=== PATIENT | male | born 1990 | race African-American/Black ===

== ENCOUNTER 2018-10-25 18:35 | Emergency (ER) | payer SELFPAY ==
[2018-10-25] MEDS ORDERED: ONDANSETRON HCL INJ/PF 4 MG/2 ML SDV IV ONE (19:05)
--- NOTE | 2018-10-25 19:08 | ER Document Report ---
ED Medical Screen (RME) - General Chief Complaint: Nausea/Vomiting/Diarrhea Stated Complaint: VOMITING Primary Care Provider: JHON BROWN MD [Primary Care Provider] - Follow up as needed TRAVEL OUTSIDE OF THE [place] IN LAST 30 DAYS: No - HPI Notes: 10/25/18 19:06 Patient is a 28-year-old male who presents complaining of mid/generalized abdominal pain is described as sharp with associated nausea, vomiting, and watery diarrhea that began yesterday evening. Patient states that he does have associated body aching and did have muscle cramping earlier. Denies [place], fever, neck pain, URI, CP, SOB, dysuria, back pain, or rash. I have treated and performed a rapid initial assessment of this patient. A comprehensive ED assessment and evaluation of the patient, analysis of test results and completion of medical decision making process will be conducted by additional ED providers. PHYSICAL EXAMINATION: GENERAL: Well-appearing, well-nourished and in no acute distress. A&Ox4. Answers questions appropriately. LUNGS: Breath sounds clear to auscultation bilaterally and equal. No wheezes rales or rhonchi. HEART: Regular rate and rhythm without murmurs, rubs, gallops. ABDOMEN: Soft, nondistended abdomen. No guarding, no rebound. Normal bowel sounds present. No CVA tenderness bilaterally. + mid abd tenderness (cannot elicit thorough abd exam w/o bed, however). - Related Data Allergies/Adverse Reactions: No Known Allergies Allergy (Unverified 10/25/18 18:44) Physical Exam - Vital signs Vitals: Temp Pulse Resp BP Pulse Ox 98.1 F 93 18 148/95 H 98 10/25/18 18:54 10/25/18 18:54 10/25/18 18:54 10/25/18 18:54 10/25/18 18:54 Course - Vital Signs Vital signs: Temp Pulse Resp BP Pulse Ox 98.1 F 93 18 148/95 H 98 10/25/18 18:54 10/25/18 18:54 10/25/18 18:54 10/25/18 18:54 10/25/18 18:54 Doctor's Discharge - Discharge Referrals: JOHN BROWN MD [Primary Care Provider] - Follow up as needed
[2018-10-25] MEDS: NORMAL SALINE 1000 ML 1,000 ML IV PRN ×2 (19:38→22:17)
[2018-10-25 19:53] LABS: ABSOLUTE BASOPHILS # (AUTO) 0.1 10^3/uL (0.0-0.2); ABSOLUTE LYMPHOCYTES (AUTO) 0.8 10^3/uL (0.5-4.7); ABSOLUTE MONOCYTES (AUTO) 0.8 10^3/uL (0.1-1.4); ABSOLUTE NEUT (AUTO) 11.3 10^3/uL (1.7-8.2); BASOPHILS % (AUTO) 0.5 % (0-2); HEMOGLOBIN 16.1 g/dL (13.5-17.0); LYMPHOCYTES % (AUTO) 5.9 % (13-45); MEAN CORPUSCULAR HEMOGLOBIN 31.4 pg (27.0-33.4); MEAN CORPUSCULAR HGB CONC 34.2 g/dL (32.0-36.0); MEAN CORPUSCULAR VOLUME 92 fl (80-97); MONOCYTES % (AUTO) 6.4 % (3-13); PLATELET COUNT 422 10^3/uL (150-450); RED BLOOD COUNT 5.11 10^6/uL (4.35-5.55); RED CELL DISTRIBUTION WIDTH 12.6 % (11.5-14.0); SEGMENTED NEUTROPHILS % (AUTO) 87.2 % (42-78); TOTAL CELLS COUNTED % (AUTO) 100 %
[2018-10-25 20:12] LABS: ALANINE AMINOTRANSFERASE 39 U/L (21-72); ALBUMIN 5.5 g/dL (3.5-5.0); ALKALINE PHOSPHATASE 91 U/L (38-126); ANION GAP 13 (5-19); ASPARTATE AMINO TRANSFERASE 39 U/L (17-59); BILIRUBIN,DIRECT 0.2 mg/dL (0.0-0.4); BILIRUBIN,TOTAL 1.3 mg/dL (0.2-1.3); BLOOD UREA NITROGEN 12 mg/dL (7-20); CALCIUM 10.5 mg/dL (8.4-10.2); CARBON DIOXIDE 32 mmol/L (22-30); CHLORIDE 98 mmol/L (98-107); CREATINE KINASE 190 U/L (55-170); GLUCOSE 117 mg/dL (75-110); LIPASE 66.9 U/L (23-300); POTASSIUM 3.9 mmol/L (3.6-5.0); SODIUM 142.5 mmol/L (137-145); TOTAL PROTEIN 9.6 g/dL (6.3-8.2)
[2018-10-25 21:00] LABS: APPEARANCE,URINE SLIGHTLY-CLOUDY; BILIRUBIN,URINE NEGATIVE (NEGATIVE); COLOR,URINE YELLOW; GLUCOSE, URINE NEGATIVE (NEGATIVE); KETONES,URINE NEGATIVE (NEGATIVE); LEUKOCYTE ESTERASE,URINE NEGATIVE (NEGATIVE); NITRITE,URINE NEGATIVE (NEGATIVE); PROTEIN,URINE 30 mg/dL (NEGATIVE); URINE SPECIFIC GRAVITY 1.032; UROBILINOGEN,URINE NEGATIVE mg/dL (<2.0)
[2018-10-25] MEDS ORDERED: METOCLOPRAMIDE HCL INJ/PF 10 MG/2 ML SDV IV ONE (21:18)
[2018-10-25] MEDS ORDERED: HYDROMORPHONE HCL INJ/PF 2 MG/ML AMPULE IV ONE (21:36)
--- NOTE | 2018-10-25 21:51 | RADIOLOGY REPORT (SQ) ---
EXAM DESCRIPTION: XR ABDOMEN 2 VIEWS SUPINE ERECT COMPLETED DATE/TME: 10/25/2018 21:19 CLINICAL HISTORY: 28 years, Male, n/v/d severe abd pain COMPARISON: None. NUMBER OF VIEWS: Three TECHNIQUE: Three frontal radiographs of the abdomen were obtained LIMITATIONS: None. FINDINGS: Gas and a mild amount of stool are noted throughout the large bowel. Scattered nondilated loops of small bowel are also visible. No subdiaphragmatic free air. No suspicious osseous anomalies. A tiny calcific density projects over the left upper quadrant measuring approximately 2 mm in size just lateral to the left L1 transverse process. Linear ossifications are noted about the medial aspects of both thighs, likely related to remote trauma. IMPRESSION: Nonobstructive bowel gas pattern. 2 mm calcific density projecting about the left upper quadrant just lateral to the left L1 transverse process could indicate enteric material or nephrolithiasis. copyright 2010 [employer]- All Rights Reserved
--- NOTE | 2018-10-25 23:34 | ER Document Report ---
ED General - General Chief Complaint: Nausea/Vomiting/Diarrhea Stated Complaint: VOMITING Time Seen by Provider: 10/25/18 22:24 Primary Care Provider: JOHN BROWN MD [EMERITUS] - Follow up in 3-5 days Notes: Patient is a 28-year-old male without chronic medical problems, no prior abdominal surgical history, presents complaining of 2 days of generalized abdominal pain with associated nausea, vomiting and diarrhea. Abdominal pain is described as a cramping, diffuse, generalized discomfort. Symptoms started gr adually, have been worsening since onset. Regards is being severe in intensity. Nothing seems to improve or worsen his symptoms. Denies history of similar symptoms in the past. No known sick contacts. Has not seen his primary care physician regarding today's concerns. Has not had fever. No melena, hematochezia or hematemesis. TRAVEL OUTSIDE OF THE [place] IN LAST 30 DAYS: No - Related Data Allergies/Adverse Reactions: No Known Allergies Allergy (Unverified 10/25/18 18:44) Past Medical History - General Information source: Patient - Social History Smoking Status: Never Smoker Chew tobacco use (# tins/day): No Frequency of alcohol use: None Drug Abuse: Marijuana Lives with: Spouse/Significant other Family History: Reviewed & Not Pertinent Patient has suicidal ideation: No Patient has homicidal ideation: No - Past Medical History Cardiac Medical History: Reports: Hx Hypertension Renal/ Medical History: Denies: Hx Peritoneal Dialysis Review of Systems - Review of Systems Notes: Constitutional: Negative for fever. HENT: Negative for sore throat. Eyes: Negative for visual changes. Cardiovascular: Negative for chest pain. Respiratory: Negative for shortness of breath. Gastrointestinal: Positive for abdominal pain, vomiting and diarrhea Genitourinary: Negative for dysuria. Musculoskeletal: Negative for back pain. Skin: Negative for rash. Neurological: Negative for headaches, weakness or numbness. 10 point ROS negative except as marked above and in HPI. Physical Exam - Vital signs Vitals: Temp Pulse Resp BP Pulse Ox 98.1 F 93 18 148/95 H 98 10/25/18 18:54 10/25/18 18:54 10/25/18 18:54 10/25/18 18:54 10/25/18 18:54 Interpretation: Hypertensive Notes: PHYSICAL EXAMINATION: GENERAL: Appears mildly uncomfortable but in no acute distress HEAD: Atraumatic, normocephalic. EYES: Pupils equal round and reactive to light, extraocular movements intact, sclera anicteric, conjunctiva are normal. ENT: nares patent, oropharynx clear without exudates. Moderately dry mucous membranes. NECK: Normal range of motion, supple without lymphadenopathy LUNGS: Breath sounds clear to auscultation bilaterally and equal. No wheezes rales or rhonchi. HEART: Regular rate and rhythm without murmurs ABDOMEN: Soft, nontender, normoactive bowel sounds. No guarding, no rebound. No masses appreciated. EXTREMITIES: Normal range of motion, no pitting or edema. No cyanosis. NEUROLOGICAL: No focal neurological deficits. Moves all extremities spontaneously and on command. PSYCH: Normal mood, normal affect. SKIN: Warm, Dry, normal turgor, no rashes or lesions noted. Course - Re-evaluation Re-evalutation: 10/25/18 23:34 Patient presents with 2 days of nausea, vomiting, diarrhea and generalized abdominal pain. Patient has no abdominal tenderness on exam and specifically no tenderness in the RLQ, LLQ, RUQ. Overall well hydrated on exam. Able to tolerate oral intake here in the emergency department. Low clinical suspicion for any acute life-threatening etiology based on exam and history including acute cholecystitis, SBO, appendicitis, nephrolithiasis, or pylonephritis. CMP without evidence of acute hepatitis or significant dehydration. Abdominal x-ray obtained in triage and was notes a possible calcification which could indicate a kidney stone versus enteric material that this does not appear to be related to the patient's presentation at this time. I have provided a [id number] prescription for ciprofloxacin. At this time will discharge with return precautions and follow-up recommendations. Verbal discharge instructions given a the bedside and opportunity for questions given. Medication warnings reviewed. Patient is in agreement with this plan and has verbalized understanding of return precautions and the need for primary care follow-up in the next 24-72 hours. - Vital Signs Vital signs: Temp Pulse Resp BP Pulse Ox 98.0 F 82 18 139/93 H 95 10/25/18 23:52 10/25/18 23:52 10/25/18 23:52 10/25/18 23:52 10/25/18 23:52 - Laboratory Result Diagrams: 10/25/18 19:22 10/25/18 19:22 Laboratory results interpreted by me: 10/25/18 10/25/18 10/25/18 19:22 19:22 20:35 WBC 13.0 H Seg Neutrophils % 87.2 H Lymphocytes % 5.9 L Absolute Neutrophils 11.3 H Carbon Dioxide 32 H Glucose 117 H Calcium 10.5 H Creatine Kinase 190 H Total Protein 9.6 H Albumin 5.5 H Urine Protein 30 H Urine Blood SMALL H Urine Ascorbic Acid 20 H - Diagnostic Test Radiology reviewed: Reports reviewed Discharge - Discharge Clinical Impression: Nausea vomiting and diarrhea, Abdominal cramping Condition: Good Disposition: HOME, SELF-CARE Additional Instructions: Your symptoms are likely due to a viral illness and should resolve in the next several days. However, as we discussed if it is not improving by Sunday of next week he can begin the ciprofloxacin that has been prescribed. You may use the Phenergan with which you have been sent home for nausea and vomiting. Continue to stay hydrated with plenty of solution such as Gatorade or Pedialyte. Please return if you develop severe abdominal pain, worsening pain, fever greater than 101 F, began having blood in your stool or vomit, pass out, become unable to tolerate any oral fluids for 12 more hours, or any other symptoms lokesh t are concerning to you. Prescriptions: Ciprofloxacin HCl [Cipro 500 mg Tablet] 500 mg PO BID #6 tablet Promethazine HCl [Phenergan 25 mg Tablet] 1 - 2 tab PO Q6H PRN #15 tablet PRN Reason: Forms: Return to Work Referrals: JOHN BROWN MD [EMERITUS] - Follow up in 3-5 days
[2018-10-25 23:55] VITALS: BP 139/93
== END 2018-10-26 | disposition home or self-care (01) ==
LOC: ER 18:35
DX: R19.7 Diarrhea, unspecified (principal); R11.2 Nausea with vomiting, unspecified; R10.84 Generalized abdominal pain; F12.10 Cannabis abuse, uncomplicated; I10 Essential (primary) hypertension
CPT/HCPCS: 99284; 96361; 96374; 96375; 36415; 82550; 83690; 85025; 80053; 81001; 74019; J2765; J1170; J2405; J7030